=== PATIENT | male | born 1995 | race Caucasian/White ===

== ENCOUNTER 2017-01-27 20:22 | Emergency (ER) | payer OTHER ==
[~2017-01-27] VITALS: Ht 180.3 cm; Wt 79.6 kg
[2017-01-27 20:27] VITALS: Ht 180.3 cm; Wt 79.6 kg
[2017-01-27] MEDS ORDERED: MULT-506 PO (20:54)
[2017-01-27 21:31] LABS: BASO % 0.3 %; BASO ABS # 0.03 K/uL (0-0.2); COMPLETE YES; EOS % 0.6 %; HEMATOCRIT 41.5 % (42-52); IG% 0.2 %; LYMPH % 13.4 %; LYMPH ABS # 1.49 K/uL (1.2-3.4); MEAN CELL VOLUME 89.6 fL (80-100); MEAN CORPUSCULAR HEMOGLOBIN 30.7 pg (25-34); MEAN CORPUSCULAR HGB CONC 34.2 g/dl (32-36); MEAN PLATELET VOLUME 10.5 fL (7.4-10.4); MONO % 5.6 %; NEUT % 79.9 %; PLATELET COUNT 269 K/uL (130-400); RED BLOOD COUNT 4.63 M/uL (4.7-6.1); WHITE BLOOD COUNT 11.16 K/uL (4.8-10.8)
[2017-01-27 21:39] LABS: BUN/CREATININE RATIO 15.3 (10-20); CREATININE 0.96 mg/dl (0.60-1.40); MAGNESIUM 2.1 mg/dl (1.8-2.4); POTASSIUM 3.7 mmol/L (3.5-5.1)
[2017-01-27 21:40] LABS: INR 1.1 (0.9-1.1); PROTHROMBIN TIME (PATIENT) 11.8 SECONDS (9.0-12.0)
[2017-01-27 21:49] LABS: PHOSPHORUS 2.1 mg/dl (2.5-4.9); THYROID STIMULATING HORMONE 2.72 uIu/ml (0.300-4.500)
--- NOTE | 2017-01-27 21:58 | DIAGNOSTIC IMAGING REPORT ---
HEAD CT NONCONTRAST CT DOSE: 614.27 mGy.cm HISTORY: SEIZURE TECHNIQUE: Multiaxial CT images of the head were performed without the use of intravenous contrast. Automated exposure control was utilized for this study. Comparison: None. Findings: Mild mucosal thickening within the paranasal sinuses. The mastoid air cells are clear. Mild deformity and extensive postoperative changes seen throughout the calvarium. This is consistent with cranial reconstructive surgery. No acute calvarial fractures. An 18 mm hyperdense focus within the high convexity of the right frontal lobe. This favors a hemorrhagic lesion. There is no midline shift or acute infarct. Incidental note is made of a cavum septum pellucidum et vergae. Impression: An 18 mm hemorrhagic focus within the right high convexity. This is concerning for a hemorrhagic lesion. Follow-up brain MRI is recommended for further evaluation. These findings were discussed with Dr. Lopez at 9:56 PM on 01/27/2017. Electronically signed by: Carlos Elizabeth M.D. 01/27/2017 9:56 PM Dictated Date/Time: 01/27/2017 9:50 PM
--- NOTE | 2017-01-27 22:04 | DIAGNOSTIC IMAGING REPORT ---
CHEST ONE VIEW PORTABLE HISTORY: SEIZURE COMPARISON: None. FINDINGS: The lungs are clear. Cardiac silhouette is normal in size. No pleural effusions. No pneumothorax. IMPRESSION: No acute process. Electronically signed by: Carlos Elizabeth M.D. 01/27/2017 10:02 PM Dictated Date/Time: 01/27/2017 10:02 PM
[2017-01-27] MEDS ORDERED: LORAZEPAM 2 MG/ML 1 ML VIAL ONE ×2 (22:05→22:07)
[2017-01-27 22:13] VITALS: TEMP 37.5
--- NOTE | 2017-01-27 22:14 | EMERGENCY ROOM VISIT NOTE ---
History Report prepared by Elizabeth: Ruiz Slade Under the Supervision of: Dr. Jose Maria Lopez D.O. First contact with patient: 21:01 Chief Complaint: SEIZURE Stated Complaint: SEIZURE Nursing Triage Summary: Patient arrived via BLS. Patient states was sitting at desk in room when he said his body went numb. Patient states he felt the convulsions. Patient states woke up an hour later in his bed. Patient does not recall anything that happened in that hour. Patient denies any drug/alcohol use or taking any medications this weekend. Denies hx of seizures. Patient c/o twitching and tingling in left arm. History of Present Illness The patient is a 21 year old male who presents to the Emergency Room with concerns over a possible seizure episode that occurred roughly 2.5 hours prior to arrival. The patient states that he was seated in his dorm room working on homework when his left arm began to spasm uncontrollably. Shortly after this episode he remembers his whole body "curling up" uncontrollably before going unconscious. He cannot remember anything after this before waking up an hour later. There were no witnesses to this seizure. He has no other symptoms at this time, but his arm has continued to spasm uncontrollably intermittently. The patient has a history of neurofacial reconstructive surgery. He denies headache, change in vision, fevers, chest pain, shortness of breath, nausea, vomiting, diarrhea, pain with urination, and melena. Source of History: patient Onset: 2.5 Position: other (Neuro) Quality: other (Possible Seizure) Timing: resolved Associated Symptoms: No headache, No vomiting Note: Left arm continues to spasm. Review of Systems See HPI for pertinent positives & negatives. A total of 10 systems reviewed and were otherwise negative. Past Medical & Surgical Surgical Problems: (1) History of facial surgery (2) History of neurologic surgery Family History No pertinent secondary to case Social History Smoking Status: Never Smoker Marital Status: single Housing Status: lives with roommate Occupation Status: [employer] student Current/Historical Medications Scheduled Multivitamin (Multivitamin), 1 TAB PO DAILY Allergies Coded Allergies: Shellfish (Verified Allergy, Severe, ANAPHYLAXIS, 01/27/17) Physical Exam Vital Signs Date Time Temp Pulse Resp B/P Pulse Ox O2 Delivery O2 Flow Rate FiO2 01/27/17 22:31 110 18 140/60 97 Nasal Cannula 2.0 01/27/17 22:27 99 Nasal Cannula 2.0 01/27/17 22:22 114 98 01/27/17 22:15 148/68 01/27/17 22:13 37.5 109 22 153/65 99 Non-Rebreather 15.0 01/27/17 22:11 153/65 01/27/17 21:37 75 19 97 01/27/17 21:30 127/77 01/27/17 21:24 99 Room Air 01/27/17 21:24 99 Room Air 01/27/17 21:22 82 20 97 01/27/17 21:07 77 19 96 01/27/17 21:00 130/68 01/27/17 20:52 85 21 98 01/27/17 20:37 80 13 98 01/27/17 20:30 141/78 01/27/17 20:28 77 01/27/17 20:27 99 Room Air 01/27/17 20:27 37.2 94 18 155/76 99 Room Air 01/27/17 20:22 155/76 Physical Exam GENERAL: Sitting up in bed, disheveled, NAD, non-toxic. EYE EXAM: normal conjunctiva, PERRL and EOM's grossly intact OROPHARYNX: no exudate, no erythema, lips, buccal mucosa, and tongue normal and mucous membranes are moist NECK: supple, no nuchal rigidity, no adenopathy, non-tender HEAD: Normocephalic atraumatic. Reconstructive surgery present on face. MOUTH: Bite evans along the right side of his tongue. LUNGS: Clear to auscultation. Normal chest wall mechanics HEART: no murmurs, S1 normal and S2 normal ABDOMEN: abdomen soft, non-tender, normo-active bowel sounds, no masses, no rebound or guarding. BACK: Back is symmetrical on inspection and there is no deformity, no midline tenderness, no CVA tenderness. SKIN: no rashes and no bruising UPPER EXTREMITIES: Unable to supinate/pronate with left upper extremity LOWER EXTREMITIES: No pitting edema. NEURO EXAM: Spasm/contractures of the left upper extremity during exam which just started. Cranial nerves II-XII intact, normal speech, no weakness of arms , no weakness of legs. No drift. Finger to nose intact. Medical Decision & Procedures ER Provider Diagnostic Interpretation: Radiology results as stated below per my review and the radiologist's interpretation: CHEST ONE VIEW PORTABLE HISTORY: SEIZURE COMPARISON: None. FINDINGS: The lungs are clear. Cardiac silhouette is normal in size. No pleural effusions. No pneumothorax. IMPRESSION: No acute process. Electronically signed by: Carlos Elizabeth M.D. 01/27/2017 10:02 PM Dictated Date/Time: 01/27/2017 10:[address] CT DOSE: 614.27 mGy.cm HISTORY: SEIZURE TECHNIQUE: Multiaxial CT images of the head were performed without the use of intravenous contrast. Automated exposure control was utilized for this study. Comparison: None. Findings: Mild mucosal thickening within the paranasal sinuses. The mastoid air cells are clear. Mild deformity and extensive postoperative changes seen throughout the calvarium. This is consistent with cranial reconstructive surgery. No acute calvarial fractures. An 18 mm hyperdense focus within the high convexity of the right frontal lobe. This favors a hemorrhagic lesion. There is no midline shift or acute infarct. Incidental note is made of a cavum septum pellucidum et vergae. Impression: An 18 mm hemorrhagic focus within the right high convexity. This is concerning for a hemorrhagic lesion. Follow-up brain MRI is recommended for further evaluation. These findings were discussed with Dr. Lopez at 9:56 PM on 01/27/2017. Electronically signed by: Carlos Elizabeth M.D. 01/27/2017 9:56 PM Dictated Date/Time: 01/27/2017 9:50 PM Laboratory Results 01/27/17 20:30 Red Blood Count 4.63, Mean Corpuscular Volume 89.6, Mean Corpuscular Hemoglobin 30.7, Mean Corpuscular Hemoglobin Concent 34.2, Mean Platelet Volume 10.5, Neutrophils (%) (Auto) 79.9, Lymphocytes (%) (Auto) 13.4, Monocytes (%) (Auto) 5.6, Eosinophils (%) (Auto) 0.6, Basophils (%) (Auto) 0.3, Neutrophils # (Auto) 8.92, Lymphocytes # (Auto) 1.49, Monocytes # (Auto) 0.63, Eosinophils # (Auto) 0.07, Basophils # (Auto) 0.03 01/27/17 20:30 Test 4/23/17 20:30 01/27/17 21:36 01/27/17 22:05 White Blood Count 11.16 K/uL (4.8-10.8) Red Blood Count 4.63 M/uL (4.7-6.1) Hemoglobin 14.2 g/dL (14.0-18.0) Hematocrit 41.5 % (42-52) Mean Corpuscular Volume 89.6 fL (80-100) Mean Corpuscular Hemoglobin 30.7 pg (25-34) Mean Corpuscular Hemoglobin Concent 34.2 g/dl (32-36) Platelet Count 269 K/uL (130-400) Mean Platelet Volume 10.5 fL (7.4-10.4) Neutrophils (%) (Auto) 79.9 % Lymphocytes (%) (Auto) 13.4 % Monocytes (%) (Auto) 5.6 % Eosinophils (%) (Auto) 0.6 % Basophils (%) (Auto) 0.3 % Neutrophils # (Auto) 8.92 K/uL (1.4-6.5) Lymphocytes # (Auto) 1.49 K/uL (1.2-3.4) Monocytes # (Auto) 0.63 K/uL (0.11-0.59) Eosinophils # (Auto) 0.07 K/uL (0-0.5) Basophils # (Auto) 0.03 K/uL (0-0.2) RDW Standard Deviation 42.6 fL (36.4-46.3) RDW Coefficient of Variation 13.1 % (11.5-14.5) Immature Granulocyte % (Auto) 0.2 % Immature Granulocyte # (Auto) 0.02 K/uL (0.00-0.02) Prothrombin Time 11.8 SECONDS (9.0-12.0) Prothromb Time International Ratio 1.1 (0.9-1.1) Activated Partial Thromboplast Time 25.9 SECONDS (21.0-31.0) Partial Thromboplastin Ratio 1.0 Anion Gap 9.0 mmol/L (3-11) Est Creatinine Clear Calc Drug Dose 131.8 ml/min Estimated GFR () 132.3 Estimated GFR (Non- 114.1 BUN/Creatinine Ratio 15.3 (10-20) Calcium Level 9.0 mg/dl (8.5-10.1) Phosphorus Level 2.1 mg/dl (2.5-4.9) Magnesium Level 2.1 mg/dl (1.8-2.4) Thyroid Stimulating Hormone (TSH) 2.720 uIu/ml (0.300-4.500) Bedside Glucose 96 mg/dl (70-99) Urine Color YELLOW Urine Appearance CLEAR (CLEAR) Urine pH 6.5 (4.5-7.5) Urine Specific [place] 1.024 (1.000-1.030) Urine Protein NEG (NEG) Urine Glucose (UA) NEG (NEG) Urine Ketones TRACE (NEG) Urine Occult Blood NEG (NEG) Urine Nitrite NEG (NEG) Urine Bilirubin NEG (NEG) Urine Urobilinogen NEG (NEG) Urine Leukocyte Esterase NEG (NEG) Laboratory results per my review. Medications Administered Medications (Trade) Dose Ordered Sig/Carlos Route Start Time Stop Time Status Last Admin Dose Admin Lorazepam 2 mg 2 mg STK-MED ONCE .ROUTE 01/27/17 22:05 01/27/17 22:06 DC 01/27/17 22:06 2 MG Levetiracetam/ Dextrose (Keppra Iv/D5 100ml) 110 ml @ 440 mls/hr ONE ONCE IV 01/27/17 22:15 01/27/17 22:29 DC 01/27/17 22:16 440 MLS/HR ECG Indication: other (Seizure) Rate (beats per minute): 78 Rhythm: normal sinus Findings: no ectopy, other (Normal [place]) ED Course ED COURSE: Vital signs were reviewed and showed hypertensive vitals The patients medical record was reviewed The above diagnostic studies were performed and reviewed. ED treatments and interventions as stated above. 9: The patient was evaluated in room B7. A complete history and physical examination was performed. 3: I checked on the patient at this time. He just had a Tonic Clonic Grand mal seizure. 5: Ordered Lorazepam 2 mg ROUTE. 2205: I discussed the case with Dr. Dariel Mtz Neurology at this time , they will not accept the patient, they suggest trauma surgery consult. 2206: I discussed the case with Dr. Gildardo Mtz Trauma Surgery, he will accept the patient for transfer. 2215: Ordered Levetiracetam 110 mL @ 440 mL/hr IV. 2217: I contacted [facility] for transfer at this time. 2229: I discussed the case with the patient's mother in depth at this time. 2230: The patient will be transferred to [facility] at this time. Medical Decision Differential diagnosis includes etiologies such as infection, hypoglycemia, electrolyte abnormalities, cardiac sources, intracerebral event, trauma, toxicologic, neurologic, as well as others were entertained. Patient is a 21-year-old male who presents the ER following a seizure 2 hours ago. He notes that it started with contractures of his left upper extremity and then he woke up on the floor. Patient has no complaints at this time however during his exam he did start to have contractures of his left upper extremity which resolved. CT of the head and blood work were obtained. CT head showed possible mass and bleed. I do not believe that this was traumatic. I was updating the patient and offered 3 hospitalist to transfer to. He requested [facility] as it was closest/easiest for his mother to get to. At this time patient had a tonoclonic grand mal seizure. Patient was given 2 g IV Ativan and the seizure broke. He was placed on a nonrebreather as pulse ox went down into the 60s to 50s. Just prior to bagging pulse ox went immediately back up to 100%. He was given IV Keppra as well. He returned back to normal. I did update his mother. I discussed case with neurosurgery at [facility] and trauma surgery. He was accepted to the ER. He was transferred via [facility] 2 to [place] ER. Consults Time Called: 2199 Consulting Physician: Dr. Dariel [facility] Neu[facility] Returned Call: [phone] I discussed the case with Dr. Dariel Mtz Neurology at this time, they will not accept the patient, they suggest trauma surgery consult. Additional Consults: Time Called: 2204 Consulted Physician: Dr. Ewing - [facility] Returned Call: [phone] Additional Comments: I discussed the case with Dr. Gildardo [facility]tz [facility], he will accept the patient for transfer. Impression Primary Impression: Intracranial bleed Additional Impression: Status epilepticus Critical Care I have personally spent 80 minutes of critical care time in the direct management of this patient. This includes bedside care, interpretation of diagnostic studies, and testing, discussion with consultants, patient, and family members, and other required patient management activities. This 80 minutes is in excess of all separately billable procedures. Scribe Attestation The scribe's documentation has been prepared under my direction and personally reviewed by me in its entirety. I confirm that the note above accurately reflects all work, treatment, procedures, and medical decision making performed by me. Departure Information Dispostion Transfer Acute Care Facility ([facility] ) Patient Instructions My [facility] Problem Qualifiers
[2017-01-27] MEDS ORDERED: LEVETIRACETAM IV 1,000 MG in DEXTROSE 5% 100ML 100 ML IV ONE (22:15)
[2017-01-27 22:27] VITALS: O2SAT 99
[2017-01-27 22:31] VITALS: BP 140/60; PULSE 110; O2SAT 97
[2017-01-27 22:42] LABS: MANUAL MICROSCOPIC REQUIRED? NO; REVIEW REQ? NO; URINE APPEARANCE CLEAR (CLEAR); URINE BILIRUBIN NEG (NEG); URINE COLOR YELLOW; URINE NITRITE NEG (NEG); URINE PH 6.5 (4.5-7.5); URINE SPECIFIC GRAVITY 1.024 (1.000-1.030); UROBILINOGEN NEG (NEG)
== END 2017-01-27 22:42 | disposition short-term general hospital (02) ==
LOC: C.EDB 20:25
DX: I62.9 Nontraumatic intracranial hemorrhage, unspecified (principal); G40.901 Epilepsy, unspecified, not intractable, with status epilepticus